=== PATIENT | male | born 1985 | race Caucasian/White ===

== ENCOUNTER 2016-09-23 18:32 | Emergency (ER) | payer OTHER ==
[2016-09-23 19:04] VITALS: BP 126/76
--- NOTE | 2016-09-23 20:47 | UC ---
Throat Pain/Nasal Robbie HPI - HPI Summary HPI Summary: Worsening sinus pain thick yellow drainage, fatigued - History of Current Complaint Chief Complaint: UCRespiratory Stated Complaint: SINUS CONGESTION Time Seen by Provider: 09/23/16 20:34 Hx Obtained From: Patient Onset/Duration: Gradual Onset, Lasting Days, Worse Since - past 3-4 days Severity: Moderate Pain Intensity: 6 Pain Scale Used: 0-10 Numeric Cough: Sputum Appears - yellow/green Associated Signs & Symptoms: Positive: Sinus Discomfort, Nasal Discharge Related History: Smoking - Allergies/Home Medications Allergies/Adverse Reactions: Allergies Allergy/AdvReac Type Severity Reaction Status Date / Time Prednisone Allergy Swelling Verified 09/23/16 19:04 Of Face,Lips,& Throat PMH/Surg Hx/FS Hx/Imm Hx Previously Healthy: Yes Psychological History: Other Other Psychological History: in recovery from opiate addiction disorder - Surgical History Surgical History: None Surgery Procedure, Year, and Place: denies - Family History Known Family History: Positive: Other - grandfather of kidney stone - Social History Occupation: Employed Full-time Lives: With Family Alcohol Use: None Substance Use Comment - Amount & Last Used: suboxone Smoking Status (MU): Light Every Day Tobacco Smoker Type: Cigarettes Amount Used/How Often: 1/2 ppd Length of Time of Smoking/Using Tobacco: 8 yrs Have You Smoked in the Last Year: Yes Household Exposure Type: Cigarettes Cessation Counseling: Counseled 3+Min - 10 Min Review of Systems Constitutional: Fatigue Skin: Negative Eyes: Negative ENT: Ear Ache, Nasal Discharge Respiratory: Cough Cardiovascular: Negative Gastrointestinal: Negative Genitourinary: Negative Motor: Negative Neurovascular: Negative Musculoskeletal: Negative Neurological: Headache Psychological: Negative All Other Systems Reviewed And Are Negative: Yes Physical Exam Triage Information Reviewed: Yes Appearance: Well-Appearing, No Pain Distress, Well-Nourished Vital Signs: Initial Vital Signs Temp 97.6 F 09/23/16 19:04 Pulse 91 09/23/16 19:04 Resp 16 09/23/16 19:04 BP 126/76 09/23/16 19:04 Pulse Ox 99 09/23/16 19:04 Vital Signs Reviewed: Yes Eye Exam: Normal Eyes: Positive: Conjunctiva Clear ENT Exam: Normal ENT: Positive: Normal ENT inspection, Hearing grossly normal, Pharynx normal, Nasal congestion, Nasal drainage, TMs normal. Negative: Tonsillar swelling, Tonsillar exudate, Trismus, Muffled/hoarse voice Dental Exam: Normal Neck exam: Normal Neck: Positive: Supple, Nontender Respiratory Exam: Normal Respiratory: Positive: Chest non-tender, Lungs clear, Normal breath sounds, No respiratory distress, No accessory muscle use Cardiovascular Exam: Normal Cardiovascular: Positive: RRR, No Murmur, Pulses Normal, Brisk Capillary Refill Musculoskeletal Exam: Normal Musculoskeletal: Positive: Strength Intact, ROM Intact, No Edema Neurological Exam: Normal Neurological: Positive: Alert, Muscle Tone Normal Psychological Exam: Normal Skin Exam: Normal Throat Pain/Nasal Course/Dx - Course Assessment/Plan: Afrin, albuterol, augmentin, increase fluids, follow with pcp, nicotine cesastion information - Differential Dx/Diagnosis Differential Diagnosis/HQI/PQRI: Laryngitis, Otitis Media, Pharyngitis, Sinusitis, URI Provider Diagnoses: NIcotine dependent, Acute Sinusitis Discharge - Discharge Plan Condition: Stable Disposition: HOME Prescriptions: Amoxicillin/Clavulanate TAB* [Augmentin TAB 875*] 875 mg PO BID #19 tab Patient Education Materials: How to Stop Smoking (ED), Sinusitis (ED), How to Use a Metered-Dose Inhaler and a Spacer (ED), How to Use Nasal [place] (ED) Forms: *Work Release Referrals: Denny Stout MD [Primary Care Provider] - If Needed
[2016-09-23] MEDS ORDERED: Amoxicillin/Clavulanate TAB* 875 MG PO ONE (20:50)
[2016-09-23] MEDS ORDERED: Albuterol HFA INHALER* 8 gm MDI INH ONE (20:50)
[2016-09-23] MEDS ORDERED: Phenylephrine 0.25% NASAL* PUFF BOTH NARES ONE (20:52)
[2016-09-23] MEDS ORDERED: Phenylephrine 1% NASAL* 15 ML BOT BOTH NARES ONE (21:23)
== END 2016-09-23 21:34 | disposition home or self-care (01) ==
LOC: UCEAST 18:32
DX: J01.90 Acute sinusitis, unspecified (principal); R53.83 Other fatigue; Z88.8 Allergy status to other drugs, medicaments and biological substances; F17.210 Nicotine dependence, cigarettes, uncomplicated; Z71.6 Tobacco abuse counseling
CPT/HCPCS: 99213; A9270-GY; G0463

== ENCOUNTER 2017-03-02 23:15 | Emergency (ER) | payer OTHER ==
[2017-03-03] MEDS ORDERED: NS 0.9% 1000 ML*IV.FLUID IV ONE (00:12)
[2017-03-03] MEDS ORDERED: Ketorolac INJ* 30 MG/ML 1 ML VIAL IV ONE (00:12)
[2017-03-03] MEDS ORDERED: metroNIDAZOLE IV 500 MG/100ML* 500 MG/100 ML BAG IVPB ONE (00:15)
[2017-03-03] MEDS ORDERED: Cefepime(*) 2 GM in NS 0.9% 50 ML* 50 ML IVPB ONE (00:15)
--- NOTE | 2017-03-03 00:31 | ED ---
Upper Extremity Pain - HPI Summary HPI Summary: Pt presents w/ Lt arm pain with skin changes s/p injecting heroin 5 weeks ago here. Area has been red, swollen and painful - 11/26. He was started on a course of doxycycline and when he completed this 2 days ago, area got worse. He also reports subjective fever/chills. Denies numbness, tingling, weakness, N/V/D, chest pain, SOB, ab pain, headache, neck pain/stiffness. He is concerned about sepsis. H/o pericarditis with "smoking too much weed" in the past - no sx like that at this time. NOTE: pt reports he's on suboxone and has been for years. He relapsed due to stress 5 weeks ago which is why he used. - History of Current Complaint Chief Complaint: EDRashSkinAbscess Stated Complaint: ABCESS ON ARM Time Seen by Provider: 03/02/17 23:27 Hx Obtained From: Patient, Family/Automation Qtp Tester - female community health counselor - Allergies/Home Medications Allergies/Adverse Reactions: Allergies Allergy/AdvReac Type Severity Reaction Status Date / Time Prednisone Allergy Swelling Verified 09/23/16 19:04 Of Face,Lips,& Throat PMH/Surg Hx/FS Hx/Imm Hx Previously Healthy: Yes Endocrine/Hematology History: Denies: Hx Anticoagulant Therapy, Hx Blood Disorders Cardiovascular History: Reports: Other Cardiovascular Problems/Disorders - pericarditis GI History: Reports: Other GI Disorders - Hep C, controlled at this time Psychiatric History: Reports: Hx Substance Abuse - former ivda - Surgical History Surgery Procedure, Year, and Place: denies Infectious Disease History: No Infectious Disease History: Denies: Traveled Outside the [place] in Last 30 Days - Family History Known Family History: Positive: Other - grandfather of kidney stone - Social History Occupation: Unemployed Alcohol Use: None - none in past 2 years Hx Substance Use: Yes Substance Use Type: Reports: Heroin - last injected 5 weeks ago Substance Use Comment - Amount & Last Used: suboxone daily 16mg Hx Tobacco Use: Yes Smoking Status (MU): Current Every Day Smoker Type: Cigarettes Amount Used/How Often: 1/2 -1 ppd Length of Time of Smoking/Using Tobacco: 8 yrs Have You Smoked in the Last Year: Yes Review of Systems Positive: Fever, Chills ENT: Other - getting over a URI Cardiovascular: Negative Respiratory: Negative Gastrointestinal: Negative Positive: no symptoms reported Skin: Other - Lt arm redness Neurological: Negative Psychological: Normal - concerned but calm and cooperative All Other Systems Reviewed And Are Negative: Yes Physical Exam Triage Information Reviewed: Yes Vital Signs On Initial Exam: Initial Vitals Temp Pulse Resp BP Pulse Ox 96.6 F 103 20 135/89 97 03/02/17 23:16 03/02/17 23:16 03/02/17 23:16 03/02/17 23:16 03/02/17 23:16 Vital Signs Reviewed: Yes Appearance: Positive: Well-Nourished, Ill-Appearing - sweating - when asked if he's withdrawing he reports "no, I just sweat alot"; pleasant, somewhat anxious , generalized pallor, Pain Distress - mild to moderate Skin: Positive: Warm, Dry - skin about the Lt brachioradialis is with central darkscabbing/black skin (about a quarter in size) surrounded by purple skin then surrounded by dusky red skin - firmness - no bogginess or fluctuance; no fever to touch; TTP and pain in this area as well as into bicep and forearm with elbow flexion/extension (feels best slightly flexed) Head/Face: Positive: Normal Head/Face Inspection Eyes: Positive: EOMI ENT: Positive: Hearing grossly normal, Pharynx normal Respiratory/Lung Sounds: Positive: Clear to Auscultation, Breath Sounds Present. Negative: Rales, Rhonchi, Wheezes Cardiovascular: Positive: Normal, Tachycardia - 103BPM, S1, S2. 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 are intact - elbow is gaurded d/t tissue issue as described above, Limited @ - as above, Pain @ - as above Neurological: Positive: Normal, Sensory/Motor Intact, Alert, Oriented to Person Place, Time, CN Intact II-III Psychiatric: Positive: Anxious - but cooperative, pleasant and in good spirits - [place] Coma Scale Coma Scale Total: 15 Diagnostics - Vital Signs Vital Signs Temp Pulse Resp BP Pulse Ox 03/02/17 23:16 96.6 F 103 20 135/89 97 - Laboratory Result Diagrams: 03/03/17 01:05 03/03/17 01:05 Lab Statement: Any lab studies that have been ordered have been reviewed, and results considered in the medical decision making process. Course/Dx - Course Course Of Treatment: Pt here w/ Lt UE redness, swelling and pain over injection site from 5 weeks ago. He hsa already tried a course of doxycycline and area seemed worse upon completion. This morning, he initially reported subjective fevers/chills. Admits he used heroin earlier today but typically takes suboxone 12mg daily. Denies withdrawal sx at this time. Labs ordered and sepsis initiated as he had low grade tachycardia and did not feel well. His labs returned w/o findings for sepsis and so after flagyl was administered it was decided a CT w/ contrast to assess for occult abscess and necrosis was ordered. Unfortnuately the "vein blew" per cell technician and so he had his CT w/o contrast ( NOTE: low suspicion for abscess at this time). Also discussed with Dr. Nagy prior to proceeding with CT contrast that pt may refrain from further IV anbx and take PO as needed. His CT image was reviewed by myself and Dr. Nagy - no air observed on wet read. Pending final report. If no abscess or necrosis identified, will d/c w/ PO clindamycin and f/u w/ medical care provider for wound recheck. Signed out to Dr. Nagy. - Diagnoses Provider Diagnoses: Cellulitis of left arm Discharge - Discharge Plan Condition: Stable Disposition: OTHER Discharge Disposition Comment: Signed out to Dr. Nagy Prescriptions: Clindamycin HCl [Clindamycin 150 MG CAP*] 300 mg PO QID #40 cap Patient Education Materials: Cellulitis (ED) Referrals: Denny Stout MD [Primary Care Provider] - Additional Instructions: Apply warm epsom salt compress to wound to aid in healing. You may take NSAID's for relief of pain/swelling Complete antibiotics as directed Follow-up with PCP Wednesday for wound recheck - call tomorrow to schedule appointment. *If in the meantime you develop fever, chills, chest pain, shortness of breath, headache, neck stiffness, numbness, tingling or weakness, return to ED
[2017-03-03] MEDS ORDERED: Vancomycin(*) 1,250 MG IV x ONCE IVPB ONE ×2 (01:00)
[2017-03-03] MEDS ORDERED: CEFEPIME* 2 GM in Dextrose* 50 ml IV ONE (01:00)
[2017-03-03] MEDS ORDERED: Vancomycin(*) 1,000 MG VIAL IVPB SCH (01:00)
[2017-03-03 01:29] LABS: Hematocrit 40 % (42-52); Mean Corpuscular HGB Conc 33 g/dl (31-36); Mean Corpuscular Hemoglobin 28 pg (27-31); Mean Corpuscular Volume 86 fL (80-94); Mean Platelet Volume 10 um3 (7.4-10.4); Red Blood Count 4.61 10^6/ul (4.0-5.4); Red Cell Distribution Width 14 % (10.5-15); White Blood Count 4.6 10^3/ul (3.5-10.8)
[2017-03-03 01:40] LABS: ALT 198 U/L (7-52); Albumin 4.1 g/dL (3.2-5.2); Alkaline Phosphatase 79 U/L (34-104); BUN/Creatinine Ratio 14.6 (8-20); Blood Urea Nitrogen 14 mg/dL (6-24); C Reactive Protein 8.69 mg/L (< 5.00); CO2 Carbon Dioxide 27 mmol/L (22-32); Calcium 9.4 mg/dL (8.6-10.3); Chloride 101 mmol/L (101-111); Creatine Kinase 150 U/L (10-223); EGFR African American 116.7 (>60); EGFR Non-African American 90.8 (>60); Globulin 3.4 g/dL (2-4); Glucose 110 mg/dL (70-100); Sodium 133 mmol/L (133-145); Total Protein 7.5 g/dL (6.4-8.9)
[2017-03-03] MEDS ORDERED: Iohexol 300* (CONTRAST) 10 ML SDV IV ONE (01:52)
[2017-03-03 01:56] LABS: Anion Gap 5 mmol/L (2-11)
[2017-03-03 03:31] VITALS: BP 138/83
--- NOTE | 2017-03-03 07:52 | RAD ---
HISTORY: Injection alignment, abscess, necrosis COMPARISONS: None relevant TECHNIQUE: Multiple contiguous axial CT images are obtained of the left elbow, with coronal and sagittal multiplanar reconstructions, without intravenous contrast administration. FINDINGS: Evaluation is limited by lack of contrast. This limits sensitivity for abscess. BONE DENSITY: Normal. BONES: There is no displaced fracture. There is no appreciable erosion or periosteal reaction. JOINTS: There is no arthropathy. There is no joint effusion. MUSCULATURE: There is mild edema of the elbow extensor musculature along the proximal radius and ulna. ALIGNMENT: There is no dislocation. SOFT TISSUES: There is stranding of the subcutaneous fat along the posterior distal humerus and posterior proximal radius. There is no appreciable loculated fluid collection. OTHER FINDINGS: None. IMPRESSION: 1. INFLAMMATORY CHANGE ALONG THE POSTERIOR ELBOW CONSISTENT WITH CELLULITIS. THERE IS NO LOCULATED FLUID COLLECTION TO SUGGEST ABSCESS. THERE IS NO APPRECIABLE EROSION OR PERIOSTEAL REACTION. 2. EVALUATION IS LIMITED BY THE LACK OF INTRAVENOUS CONTRAST. ADDITIONALLY, THERE IS PERSISTENT CLINICAL CONCERN FOR OSTEOMYELITIS, MRI OR BONE SCAN MAY BE MORE SENSITIVE.
== END 2017-03-03 03:30 | disposition home or self-care (01) ==
LOC: ED 23:15
DX: L03.114 Cellulitis of left upper limb (principal); R50.9 Fever, unspecified; Z88.8 Allergy status to other drugs, medicaments and biological substances; I31.9 Disease of pericardium, unspecified; F11.10 Opioid abuse, uncomplicated; F17.210 Nicotine dependence, cigarettes, uncomplicated
CPT/HCPCS: 36415; 80053; 82550; 83605; 84484; 85025; 85610; 85730; 86140; 87040; 93005; 96365; 96375; 99284; J0692; J1885; J3370

== ENCOUNTER 2017-03-08 09:38 | Emergency (ER) | payer OTHER ==
[2017-03-08] MEDS ORDERED: Amoxicillin/Clavulanate TAB* 875 MG PO ONE (11:16)
[2017-03-08 11:28] VITALS: BP 135/84
--- NOTE | 2017-03-15 13:06 | ED ---
Skin Complaint - HPI Summary HPI Summary: Pt here w/ Lt arm abscess x ... He was seen here by myself a few days ago. He had been taking doxycycline prior to last visit. Was switched to clindamycin however reports today he was not sure which pharmacy it was sent to so he hasn' t been taking it. Continued to take left over doxycycline he had at his house. Wound appears better today however pt is concerned and wanted recheck. He also has URI sx that are not improving. He's concerned about this URI healing as he' s not been sleeping with obligations he has throughout the day - needs more sleep. - History of Current Complaint Chief Complaint: EDRashSkinAbscess Time Seen by Provider: 03/08/17 09:45 Stated Complaint: ARM ABCESS Hx Obtained From: Patient Pain Intensity: 7 - Allergy/Home Medications Allergies/Adverse Reactions: Allergies Allergy/AdvReac Type Severity Reaction Status Date / Time Prednisone Allergy Swelling Verified 03/08/17 10:21 Of Face,Lips,& Throat PMH/Surg Hx/FS Hx/Imm Hx Previously Healthy: Yes Endocrine/Hematology History: Denies: Hx Anticoagulant Therapy, Hx Blood Disorders, Hx Diabetes Cardiovascular History: Reports: Other Cardiovascular Problems/Disorders - pericarditis GI History: Reports: Other GI Disorders - Hep C, controlled at this time History: Denies: Hx Renal Disease Psychiatric History: Reports: Hx Substance Abuse - IVDA, intermittent - in process of cessation however admits to relapses - Surgical History Surgery Procedure, Year, and Place: denies - Immunization History Immunizations Up to Date: Yes Infectious Disease History: No Infectious Disease History: Denies: Traveled Outside the [place] in Last 30 Days - Family History Known Family History: Positive: Other - grandfather of kidney stone - Social History 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 Negative: Fever, Chills Eyes: Negative Negative: Photophobia, Blurred Vision, Diplopia, Drainage, Erythema Positive: Sore Throat, Ear Ache, Nasal Discharge Cardiovascular: Negative Negative: Palpitations, Chest Pain Positive: Cough. Negative: Shortness Of Breath Gastrointestinal: Negative Negative: Abdominal Pain, Vomiting, Diarrhea, Nausea Positive: no symptoms reported Musculoskeletal: Negative Negative: Decreased ROM Skin: Other - wound Lt arm Positive: Headache - from sinus pain/pressure - no neck pain/stiffness. Negative: Weakness, Numbness, Syncope Positive: Anxious All Other Systems Reviewed And Are Negative: Yes Physical Exam Triage Information Reviewed: Yes Vital Signs On Initial Exam: Initial Vitals Temp Pulse Resp BP Pulse Ox 97.0 F 88 15 149/91 99 03/08/17 09:39 03/08/17 09:39 03/08/17 09:39 03/08/17 09:39 03/08/17 09:39 Vital Signs Reviewed: Yes Appearance: Positive: No Pain Distress - anxious, Well-Nourished, Ill-Appearing - appears mildly fatigued and sick w/ URI Skin: Positive: Warm, Dry - area over Lt brachioradialis region is smaller re: erythema - scab is still intact and no induration, fever, bogginess, streaking or drainage - appears to be healing well Head/Face: Positive: Normal Head/Face Inspection Eyes: Positive: Normal, EOMI, BRIANNA, Conjunctiva Clear. Negative: Conjunctiva Inflammed, Discharge ENT: Positive: Hearing grossly normal, Pharyngeal erythema - cobblestoning, Nasal congestion, TMs normal, Sinus tenderness, Uvula midline. Negative: Nasal drainage, Trismus, Muffled voice, Hoarse voice Neck: Positive: Supple, Nontender, No Lymphadenopathy Respiratory/Lung Sounds: Positive: Clear to Auscultation, Breath Sounds Present. Negative: Rales, Rhonchi, Wheezes Cardiovascular: Positive: Normal, RRR, Pulses are Symmetrical in both Upper and Lower Extremities, S1, S2. Negative: Murmur, Rub Abdomen Description: Positive: Nontender, No Organomegaly, Soft Bowel Sounds: Positive: Present Musculoskeletal: Positive: Normal, Strength/ROM Intact Neurological: Positive: Normal, Sensory/Motor Intact, Alert, Oriented to Person Place, Time, CN Intact II-III Psychiatric: Positive: Anxious - [place] Coma Scale Coma Scale Total: 15 Diagnostics - Vital Signs Vital Signs Temp Pulse Resp BP Pulse Ox 03/08/17 11:27 97.6 F 85 16 135/84 99 03/08/17 09:39 97.0 F 88 15 149/91 99 - Laboratory Lab Statement: Any lab studies that have been ordered have been reviewed, and results considered in the medical decision making process. Course/Dx - Course Course Of Treatment: Although pt's wound appears to be healing well, his URI is progressing despite doxycycline. He has been taking this for over a week now w/ sinus sx - will have him complete doxy for wound on Lt arm as this is healing well but start him on augmentin for URI/sinus infection sx. He is under alot of stress and not sleeping well which may prolong healing. Will also take him out of work/activity for 2 days to allow for rest/healing. If sx persist or worsen, f/u w/ PCP. Pt agrees w/ plan. - Diagnoses Provider Diagnoses: URI (upper respiratory infection), Sinusitis Discharge - Discharge Plan Condition: Stable Disposition: HOME Prescriptions: Amoxicillin/Clavulanate TAB* [Augmentin TAB 875*] 875 mg PO BID #20 tab Patient Education Materials: Sinusitis (ED), Upper Respiratory Infection (ED) Forms: *Work Release Referrals: Denny Stout MD [Primary Care Provider] - Additional Instructions: Rest, hydrate, and complete medication as directed (Augmentin - new today to treat sinus infection). Nasal wash (netti pot) & throat gargle 2 x day with 8 ounces of warm water + 1/ 4 teaspoon of salt Drink 60+ ounces of water daily Sleep 8+ hours per night Avoid Dairy and sugar Hot herbal/decaf tea with lemon & honey Chicken broth (preferably organic, free range chicken) Humidifier in house, but especially near bed at night Try a facial steam with or without eucalyptus essential oil You may also try Afrin nasal spray and ibuprofen with food for congestion, swelling and pain of sinuses. Consider taking Vitamin D3 5,000iu and Vitamin C 1,000mg every day during illness Start probiotics in between and after completion of antibiotics (ie. Yogurt and/ or capsules of L. acidophilus, L. bifidus, L. casei, etc - make sure to get these from the refrigerated food section as they are live and active cultures) Complete the doxycyline you have been taking at home for your wound infection - appears to be healing well. *If symptoms persist or worsen, follow-up with your PCP.
== END 2017-03-08 11:26 | disposition home or self-care (01) ==
LOC: ED 09:38
DX: J06.9 Acute upper respiratory infection, unspecified (principal); J32.9 Chronic sinusitis, unspecified; L02.414 Cutaneous abscess of left upper limb; Z88.8 Allergy status to other drugs, medicaments and biological substances; I31.9 Disease of pericardium, unspecified; B19.20 Unspecified viral hepatitis C without hepatic coma; F11.90 Opioid use, unspecified, uncomplicated; F17.210 Nicotine dependence, cigarettes, uncomplicated
CPT/HCPCS: 99282; A9270-GY

== ENCOUNTER 2017-03-18 20:24 | Emergency (ER) | payer OTHER ==
[2017-03-18 20:31] VITALS: BP 147/85
[2017-03-18] MEDS ORDERED: Ketorolac INJ* 60 MG/2 ML VIAL IM ONE (21:23)
[2017-03-18] MEDS ORDERED: Lidocaine/Epineph/Tetraca SOL* (LET solution) 4 ML BTL TOPICAL ONE (21:23)
--- NOTE | 2017-03-18 21:31 | UC ---
Skin Complaint HPI - HPI Summary HPI Summary: Wound on Left Elbow painful---oozing off Suboxone for 4 days also scrapped over a metal vent last night---wound is mostly soft eshar tissue - History of Current Complaint Hx Obtained From: Patient Onset/Duration: Gradual Onset, Lasting Weeks, Worse Since - last nigh Timing: Constant Onset Severity: Moderate Current Severity: Moderate Pain Intensity: 8 Pain Scale Used: 0-10 Numeric Location: Discrete Character: Pain, Redness Aggravating Factor(s): Touch Alleviating Factor(s): Nothing <Bailey Montano - Last Filed: 03/19/17 21:21> <Momo Nagy - Last Filed: 03/22/17 15:19> - History of Current Complaint Chief Complaint: UCSkin Time Seen by Provider: 03/18/17 20:57 Stated Complaint: WOUND ON ARM - Allergy/Home Medications Allergies/Adverse Reactions: Allergies Allergy/AdvReac Type Severity Reaction Status Date / Time Prednisone Allergy Swelling Verified 03/18/17 20:32 Of Face,Lips,& Throat Review of Systems Constitutional: Negative Skin: Other - painful poorly healing wound left forearm Eyes: Negative ENT: Negative Respiratory: Negative Cardiovascular: Negative Gastrointestinal: Negative Genitourinary: Negative Motor: Negative Neurovascular: Negative Musculoskeletal: Negative Neurological: Negative Psychological: Negative Is Patient Immunocompromised?: No All Other Systems Reviewed And Are Negative: Yes <Bailey Montano - Last Filed: 03/19/17 21:21> PMH/Surg Hx/FS Hx/Imm Hx Previously Healthy: No Other History Of: Hepatitis C Negative For: Anticoagulant Therapy - Surgical History Surgical History: None Surgery Procedure, Year, and Place: denies - Family History Known Family History: Positive: Other - grandfather of kidney stone - Social History 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 Lives: With Family Alcohol Use: None Substance Use Type: Heroin Substance Use Comment - Amount & Last Used: last 03/13/17 Smoking Status (MU): Light Every Day Tobacco Smoker Type: Cigarettes Amount Used/How Often: 1/2 -1 ppd Length of Time of Smoking/Using Tobacco: 8 yrs Have You Smoked in the Last Year: Yes Household Exposure Type: Cigarettes <Bailey Montano - Last Filed: 03/19/17 21:21> Physical Exam Triage Information Reviewed: Yes Appearance: Well-Appearing, Well-Nourished, Pain Distress Vital Signs: Initial Vital Signs Temp 97.5 F 03/18/17 20:27 Pulse 95 03/18/17 20:27 Resp 18 03/18/17 20:27 BP 147/85 03/18/17 20:27 Pulse Ox 98 03/18/17 20:27 Vital Signs Reviewed: Yes Eye Exam: Normal Eyes: Positive: Conjunctiva Clear ENT Exam: Normal ENT: Positive: Normal ENT inspection, Hearing grossly normal, Pharynx normal. Negative: Trismus, Muffled voice, Hoarse voice Dental Exam: Normal Neck exam: Normal Neck: Positive: Supple, Nontender Respiratory Exam: Normal Respiratory: Positive: Chest non-tender, No respiratory distress, No accessory muscle use Cardiovascular Exam: Normal Cardiovascular: Positive: RRR, Pulses Normal, Brisk Capillary Refill Musculoskeletal Exam: Normal Musculoskeletal: Positive: Strength Intact, ROM Intact, No Edema Neurological Exam: Normal Neurological: Positive: Alert, Muscle Tone Normal Psychological Exam: Normal Skin Exam: Normal Skin: Positive: Other - 3x2 cm black eschar with 1/2 cm border of erythma <Bailey Montano - Last Filed: 03/19/17 21:21> Vital Signs: Initial Vital Signs Temp 97.5 F 03/18/17 20:27 Pulse 95 03/18/17 20:27 Resp 18 03/18/17 20:27 BP 147/85 03/18/17 20:27 Pulse Ox 98 03/18/17 20:27 <Momo Nagy - Last Filed: 03/22/17 15:19> Re-Evaluation - Re-Evaluation First Eval Change: Improved - eschar removed from wound no purulent drainage, wound bed pink and moist, no active bleeding wound washed with saline, Mepilex dresssing applied <Bailey Montano - Last Filed: 03/19/17 21:21> Course/Dx - Course Course Of Treatment: continue antibiodic, change Mepilex q 3-4 days and prn saturated dressing follow with pcp this week as planned - Diagnoses Provider Diagnoses: wound debridement left forearm <Bailey Montano - Last Filed: 03/19/17 21:21> Discharge <Bailey Montano - Last Filed: 03/19/17 21:21> <Momo Nagy Last Filed: 03/22/17 15:19> - Discharge Plan Condition: Stable Disposition: HOME Prescriptions: Fluconazole [Diflucan 150 MG (NF)] 150 mg PO ONCE #1 tab Hydrocodone-Acetaminophen [Hydrocodone/Acetaminophen 5-325 mg] 1 tab PO QID #12 tab MDD 4 Patient Education Materials: Debridement (ED) Forms: *Work Release Referrals: Denny Stout MD [Primary Care Provider] - As Soon As Possible Additional Instructions: Follow with Dr. Stout as planned. Change Mepilex dressing every three days or is it becomes saturated with drainage wash with mild soap and water when you change the dressing and dry well Good [place] and One Day at a time You Got this !! Never! Never ! Never ! Give up!
[2017-03-18] MEDS ORDERED: Lidocaine 4% TOPICAL* 50 ML TOP.SOLN TOPICAL ONE (22:04)
[2017-03-18] MEDS ORDERED: HYDROcodone/ACETAMIN 5-325 MG* 1 TAB PO ONE (22:04)
--- NOTE | 2017-03-22 15:18 | ED ---
Re-Evaluation - Re-Evaluation First Eval Change: Improved - eschar removed from wound no purulent drainage, wound bed pink and moist, no active bleeding wound washed with saline, Mepilex dresssing applied Course/Dx - Course Course Of Treatment: WOUND CX OF 03/18/17 SHOWED POSITIVE SULEIMAN. RX DIFLUCAN 150MG PO ONCE. - Diagnoses Provider Diagnoses: [place] infection
== END 2017-03-18 22:25 | disposition home or self-care (01) ==
LOC: UCEAST 20:24
DX: S41.102A Unspecified open wound of left upper arm, initial encounter (principal); B37.2 Candidiasis of skin and nail; X58.XXXA Exposure to other specified factors, initial encounter; Y93.9 Activity, unspecified; Y92.9 Unspecified place or not applicable; Y99.9 Unspecified external cause status; F17.210 Nicotine dependence, cigarettes, uncomplicated
CPT/HCPCS: 11000; 87070; 87106; 87205; 96372; 99212; G0463; J1885

== ENCOUNTER 2017-09-29 10:39 | Emergency (ER) | payer OTHER ==
[2017-09-29 13:01] VITALS: BP 133/94
--- NOTE | 2017-09-29 13:47 | UC ---
Skin Complaint HPI - HPI Summary HPI Summary: PT HAD A TICK BITE ABDOMEN ABOUT 2 WEEKS AGO. PRESENTS WITH SEVERAL DAYS OF FEVER TMAX 102, JOINT PAIN, MUSCLE PAIN AND CHILLS. FEELS FATIGUED. HAS A PAINFUL RED RASH RIGHT ANKLE. STATES HIS ARMS ARE "PURPLE" IN COLOR AND FEEL SWOLLEN. - History of Current Complaint Chief Complaint: UCGeneralIllness Time Seen by Provider: 09/29/17 13:15 Stated Complaint: TICK BITE FEVER CHILLS Hx Obtained From: Patient Onset/Duration: Sudden Onset, Lasting Days, Still Present Timing: Constant Onset Severity: Moderate Current Severity: Moderate Pain Intensity: 9 Pain Scale Used: 0-10 Numeric Character: Pain, Redness Aggravating Factor(s): Touch Alleviating Factor(s): Nothing Associated Signs & Symptoms: Positive: Fever, Rash, Tenderness. Negative: Nausea - Allergy/Home Medications Allergies/Adverse Reactions: Allergies Allergy/AdvReac Type Severity Reaction Status Date / Time amoxicillin Allergy vomit Verified 09/29/17 10:58 prednisone Allergy Swelling Verified 09/29/17 10:57 Home Medications: Home Medications Buprenorphine TAB* [Subutex TAB*] 09/29/17 [History] DOXYcycline CAP(*) [DOXYcycline 100MG CAP(*)] 100 mg PO 09/29/17 [History] Gabapentin 09/29/17 [History] Review of Systems Constitutional: Fever, Chills, Fatigue Skin: Rash Respiratory: Negative Cardiovascular: Negative Gastrointestinal: Negative Musculoskeletal: Arthralgia, Myalgia Neurological: Headache All Other Systems Reviewed And Are Negative: Yes PMH/Surg Hx/FS Hx/Imm Hx - Additional Past Medical History Additional PMH: H/O IV DRUG USE. CLEAN SINCE ~01/2017 Other History Of: Hepatitis C Negative For: Anticoagulant Therapy - Surgical History Surgical History: None Surgery Procedure, Year, and Place: denies - Family History Known Family History: Positive: Hypertension, Other - grandfather of kidney stone - Social History Alcohol Use: None Substance Use Type: Heroin Substance Use Comment - Amount & Last Used: last 03/13/17 Smoking Status (MU): Light Every Day Tobacco Smoker Type: Cigarettes Amount Used/How Often: 1/2 -1 ppd Length of Time of Smoking/Using Tobacco: 8 yrs Have You Smoked in the Last Year: Yes Household Exposure Type: Cigarettes Physical Exam Triage Information Reviewed: Yes Appearance: Well-Appearing, No Pain Distress, Well-Nourished Vital Signs: Initial Vital Signs Temp 98 F 09/29/17 10:54 Pulse 103 09/29/17 10:54 Resp 20 09/29/17 10:54 BP 151/92 09/29/17 10:54 Pulse Ox 99 09/29/17 10:54 Vital Signs Reviewed: Yes Eyes: Positive: Conjunctiva Clear ENT: Positive: Hearing grossly normal Neck: Positive: Supple, Nontender, No Lymphadenopathy Respiratory Exam: Normal Cardiovascular Exam: Normal Cardiovascular: Positive: Tachycardia Abdomen Description: Positive: Nontender, Soft Musculoskeletal: Positive: ROM Intact, No Edema Neurological: Positive: Alert Psychological: Positive: Age Appropriate Behavior Skin: Positive: Other - NON BLANCHING PUPURA RIGHT MEDIAL ANKLE - TTP. BILATERAL FOREARMS ARE DUSKY. SCABBED OVER TICK BITE SITE RIGHT ABD Course/Dx - Course Course Of Treatment: TO [facility] BY PRIVATE CAR - Diagnoses Provider Diagnoses: PURPURA Discharge - Sign-Out/Discharge Documenting (check all that apply): Discharge/Admit/Transfer - Discharge Plan Condition: Stable Disposition: HOME Patient Education Materials: [place] (ED) Referrals: Denny Stout MD [Primary Care Provider] - 2 Days Additional Instructions: GO DIRECTLY TO THE [facility] ED FROM HERE FOR FURTHER EVALUATION - Billing Disposition and Condition Condition: STABLE Disposition: Home
== END 2017-09-29 13:35 | disposition home or self-care (01) ==
LOC: UCEAST 10:39
DX: D69.2 Other nonthrombocytopenic purpura (principal); Z88.3 Allergy status to other anti-infective agents; F17.210 Nicotine dependence, cigarettes, uncomplicated
CPT/HCPCS: 99212; G0463

== ENCOUNTER 2018-08-07 19:43 | Inpatient (IN) | payer OTHER ==
[2018-08-07] MEDS ORDERED: cefTRIAXone(*) 1 GM in NS 0.9% 50 ML* 50 ML IVPB ONE (22:00)
[2018-08-07] MEDS ORDERED: NS 0.9% 1000 ML** 1,000 ML IV.FLUID IV ONE (22:00)
[2018-08-07] MEDS ORDERED: Albuterol/Ipratropium NEB.SOL* Albuterol 2.5 MG/Ipratropium 0.5 MG 3 ML INH ONE (22:00)
[2018-08-07] MEDS ORDERED: Azithromycin 500 mg/250 ml NS 500 MG/250 ML BAG IVPB ONE (22:00)
--- NOTE | 2018-08-07 22:04 | ED ---
Respiratory - HPI Summary HPI Summary: Patient is a 32-year-old male who presents emergency Department with a five-day history of fever, SOB and cough. Past history of IV drug use but patient states he has not used in 3 years. Patient notes a history of asthma and has used an inhaler in the past. Patient denies chest pain, abdominal pain, vomiting and diarrhea, rash. Past medical history of hepatitis C, no current treatment. Symptoms are moderate in severity. No current modifying factors. - History of Current Complaint Chief Complaint: EDFever Stated Complaint: "GENERAL ILLNESS PER EMS" Time Seen by Provider: 08/07/18 21:35 Hx Obtained From: Patient Pain Intensity: 2 - Allergy/Home Medications Allergies/Adverse Reactions: Allergies Allergy/AdvReac Type Severity Reaction Status Date / Time amoxicillin Allergy vomit Verified 09/29/17 10:58 prednisone Allergy Swelling Verified 09/29/17 10:57 PMH/Surg Hx/FS Hx/Imm Hx Previously Healthy: Yes Endocrine/Hematology History: Denies: Hx Anticoagulant Therapy, Hx Blood Disorders, Hx Diabetes Cardiovascular History: Reports: Other Cardiovascular Problems/Disorders - pericarditis GI History: Reports: Other GI Disorders - Hep C, controlled at this time History: Denies: Hx Renal Disease Psychiatric History: Reports: Hx Substance Abuse - IVDA, intermittent - in process of cessation however admits to relapses - Surgical History Surgery Procedure, Year, and Place: denies Infectious Disease History: Yes Infectious Disease History: Reports: Hx Hepatitis - hep c/not treated Denies: Traveled Outside the [place] in Last 30 Days - Family History Known Family History: Positive: Hypertension, Other - grandfather of kidney stone - Social History Occupation: Unemployed Lives: Alone Alcohol Use: None Hx Substance Use: Yes Substance Use Type: Reports: Heroin Substance Use Comment - Amount & Last Used: last 03/13/17 Hx Tobacco Use: Yes Smoking Status (MU): Light Every Day Tobacco Smoker Type: Cigarettes Amount Used/How Often: 1/2 -1 ppd Length of Time of Smoking/Using Tobacco: 8 yrs Have You Smoked in the Last Year: Yes Review of Systems Positive: Fever, Chills Eyes: Negative ENT: Negative Cardiovascular: Negative Negative: Chest Pain Positive: Shortness Of Breath, Cough Gastrointestinal: Negative Negative: Abdominal Pain, Diarrhea Musculoskeletal: Negative Skin: Negative Neurological: Negative All Other Systems Reviewed And Are Negative: Yes Physical Exam Triage Information Reviewed: Yes Vital Signs On Initial Exam: Initial Vitals Temp Pulse Resp BP Pulse Ox 98.9 F 126 15 133/59 92 08/07/18 19:47 08/07/18 19:47 08/07/18 19:47 08/07/18 19:47 08/07/18 19:47 Vital Signs Reviewed: Yes Appearance: Positive: Ill-Appearing - Pt. sitting up in bed, appears unwell. Skin: Positive: Warm, Dry Head/Face: Positive: Normal Head/Face Inspection Eyes: Positive: Normal, EOMI, BRIANNA Neck: Positive: Supple. Negative: Nuchal Rigidity Respiratory/Lung Sounds: Positive: Other - Diminished breath sounds throughout with expiratory wheeze. No accessory muscle use. No stidor.. Negative: Unable to speak in full sentences Neurological: Positive: Normal, CN Intact II-III Psychiatric: Positive: Affect/Mood Appropriate Diagnostics - Vital Signs Vital Signs Temp Pulse Resp BP Pulse Ox 08/07/18 19:47 98.9 F 126 15 133/59 92 - Laboratory Result Diagrams: 08/07/18 23:20 08/07/18 23:20 Lab Statement: Any lab studies that have been ordered have been reviewed, and results considered in the medical decision making process. Disposition - Course Course Of Treatment: Patient presenting with cough, fever and shortness of breath. Patient is ill-appearing on exam and oxygen saturation on room air is in the mid 80s. Patient was placed on nasal cannula. Respiratory paged. O2 mid 90's on 4L. Chest x-ray was obtained in triage and shows bilateral likely diffuse infiltrates, reviewed by myself and Dr. Crawford. Patient tachycardic. Afebrile. Sepsis protocol ordered and antibx. Will obtain CT scan of chest with contrast for further evaluation. 2240: Nurses unable to obtain IV access after numerous attempts and ultrasound guided. Dr. Peck in to exam pt. and will place a central line. Labs show anemia and low platelet count. Troponin .11. Na 131, Cl 95, Ca 8, bilirubin 1.3, AST 88, CRP 111. ECG done at 1 shows a sinus tachycardia at 122 bpm, normal axis, no ST elevation or depression. Pending HIV ab. Case discussed with Dr. Appiah, hospitalist, who accepts pt. for admission. Pending chest CT at this time. - Differential Dx - Cardiopulmonary Differential Diagnoses - Cardiopulmonary: Asthma, Hypoxia, Lower Resp Infection , Myocardial Infarction, Myocarditis, Pericarditis - Diagnoses Provider Diagnoses: Pneumonia, Hypoxic - Critical Care Time Critical Care Time: 30-74 min - 30 minutes including direct pt. care and consultation. Excludes billable procedures. Discharge - Sign-Out/Discharge Documenting (check all that apply): Patient Departure Patient Received Moderate/Deep Sedation with Procedure: No - Discharge Plan Condition: Stable Disposition: ADMITTED TO [facility] - Billing Disposition and Condition Condition: STABLE Disposition: Admitted to [facility]
[2018-08-07] MEDS ORDERED: Lidocaine 2% EPI 1:200000 MPF* 10 ML VIAL INJ ONE (22:39)
[2018-08-07 22:42] LABS: Influenza A Molecular NEGATIVE (Negative); Influenza B Molecular NEGATIVE (Negative)
[2018-08-07] MEDS ORDERED: Lidocaine 2% EPI 1:200000 MPF*10-20 ML VIAL ONE (22:46)
--- NOTE | 2018-08-07 23:13 | ED ---
Progress - Progress Note Progress Note: Performing central line procedure on patient at request of SUMAYA Slade. A 32 y/o M presents to ED with c/o fever, SOB, cough onset 5 days ago. Past history of IV drug. A central line was placed at L subclavian under US guidance via standard Seldinger technique. Used 2% lido with epi. - Results/Orders Results/Orders: CXR post-central line as read by ED provider: Confirms good placement. Course/Dx - Course Course Of Treatment: Performing central line procedure on patient at request of SUMAYA Slade. Pt is a 32 y/o M with IV drug use hx presenting with fever, SOB, cough onset 5 days ago. Central line placed at L subclavian under US guidance via standard Seldinger technique. Used 2% lido with epi. CXR post-proc confirms good placement. - Diagnoses Provider Diagnoses: Pneumonia, Hypoxic Discharge - Sign-Out/Discharge Documenting (check all that apply): Patient Departure - Discharge Plan Condition: Stable Disposition: ADMITTED TO [facility] - Billing Disposition and Condition Condition: STABLE Disposition: Admitted to [facility] - Attestation Statements Document Initiated by Scribe: Yes Documenting Scribe: Valentina Alberts Provider For Whom Scribe is Documenting (Include Credential): Dr. Reggie Peck MD Scribe Attestation: Valentina Vasquez scribed for Dr. Reggie Peck MD on 08/08/18 at 0244. Scribe Documentation Reviewed: Yes Provider Attestation: The documentation as recorded by the Valentina keene accurately reflects the service I personally performed and the decisions made by , Dr. Reggie Peck MD Status of Scribe Document: Viewed
[2018-08-07 23:49] LABS: ABS Basophils 0 10^3/ul (0-0.2); ABS Eosinophils 0 10^3/ul (0-0.6); ABS Lymphocytes 0.8 10^3/ul (1.0-4.8); ABS Monocytes 0.4 10^3/ul (0-0.8); ABS Neutrophils 4.7 10^3/ul (1.5-7.7); ABS Nucleated RBC 0 10^3/ul; Eosinophil % 0.5 %; Hematocrit 26 % (36-46); Hemoglobin 8.4 g/dL (14.0-18.0); Lymphocyte % 13.1 %; Mean Corpuscular HGB Conc 33 g/dL (31-36); Mean Corpuscular Hemoglobin 25 pg (27-31); Mean Corpuscular Volume 78 fL (80-94); Mean Platelet Volume 11.2 fL (7.4-10.4); Nucleated Red Blood Cells % 0.1; Platelet Count 106 10^3/uL (150-450); Red Blood Count 3.33 10^6 /uL (4.18-5.48); Red Cell Distribution Width 18 % (10.5-15)
[2018-08-07 23:58] LABS: Activated Partial Thrombo Time 29.2 seconds (26.0-36.3); INR 1.29 (0.77-1.02)
[2018-08-08 00:01] LABS: ALT 44 U/L (7-52); AST 88 U/L (13-39); Albumin 2.6 g/dL (3.2-5.2); Albumin/Globulin Ratio 0.8 (1-3); Alkaline Phosphatase 40 U/L (34-104); Anion Gap 8 mmol/L (2-11); BUN/Creatinine Ratio 26.5 (8-20); Blood Urea Nitrogen 27 mg/dL (6-24); C Reactive Protein 111.65 mg/L (<8.01); CO2 Carbon Dioxide 28 mmol/L (22-32); Chloride 95 mmol/L (101-111); EGFR African American 101.8 (>60); EGFR Non-African American 84.1 (>60); Globulin 3.2 g/dL (2-4); Glucose 114 mg/dL (70-100); Potassium 3.9 mmol/L (3.5-5.0); Sodium 131 mmol/L (135-145); Total Protein 5.8 g/dL (6.4-8.9)
[2018-08-08 00:14] LABS: Troponin I 0.11 ng/mL (<0.04)
[2018-08-08] MEDS ORDERED: Iohexol 300* (CONTRAST) 10 ML SDV IV ONE (00:19)
[2018-08-08 00:47] LABS: Magnesium 1.9 mg/dL (1.9-2.7)
[2018-08-08] MEDS ORDERED: Acetaminophen TAB* 325 MG PO PRN (01:33)
[2018-08-08] MEDS ORDERED: cefTRIAXone(*) 1 GM in NS 0.9% 50 ML* 50 ML IVPB SCH ×3 (02:00→21:00)
[2018-08-08] MEDS ORDERED: Buprenorphine TAB* 8 MG PO ONE (02:02)
--- NOTE | 2018-08-08 02:47 | ADMNOTE ---
Subjective Date of Service: 08/08/18 Interval History: HISTORY AND PHYSICAL PCP: Divya sher [facility] CC: fever HPI: Patient is 32 year old man with history of asthma, HepC, IVDU 5 years ago, who came to ER today with 5-7 day history of progressive fever, cough, and dyspnea. Cough is productive yellow sputum, and dyspnea has been more prominent for 2 days. He did not see PCP or CCC. He denies chest pain, orthopnea. He is actively trying to quit tobacco. In the ER, Central line placed due to poor access, LT subclavian. When he comes off O2 in ER, his O2sat drops to 82-82, and he looks dusky. 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, smokes 1 /2 PPD, no alcohol, last IV drug use 5 years ago Past Medical History: Findings - HepC, chronic active, asthma, PSH: none Review of Systems - Measurements Intake and Output: Intake and Output Last 24 Hours 08/05/18 08/06/18 08/07/18 08/08/18 06:59 06:59 06:59 06:59 Intake Total 2700 Balance 2700 Weight 88.451 kg Intake: IV Fluids 2700 - Review of Systems Constitutional Symptoms: Positive: Fatigue, Fever Dermatology: Positive: Normal HEENT: Positive: Normal Eyes: Positive: Normal Thyroid: Positive: Normal Pulmonary: Positive: Sputum, Respiratory Distress, Shortness of Breath Cardiology: Positive: Shortness of Breath, Edema Negative: Chest Pain Gastroenterology: Positive: Normal Negative: Abdominal Pain, Vomiting Genital - Urinary: Positive: Normal Genitourinary - Male: Negative: Prostatism Endocrinology: Positive: Normal Hematologic/Lymphatic: Negative: Anemia Neurology: Positive: Normal Psychiatry: Positive: Normal, Other - withdrawal Allergic/Immunologic: Positive: Athsma Objective Active Medications: Home medications Acetaminophen (Tylenol Tab*) 650 mg PO Q4H PRN PRN Reason: FEVER/HEADACHE Buprenorphine HCl (Subutex Tab*) 8 mg SL TID LENIN Gabapentin (Neurontin Cap(*)) 800 mg PO 1930 [facility] Vital Signs - 8 hr 08/08/18 08/08/18 08/08/18 00:07 00:24 00:54 Temperature Pulse Rate 120 118 114 Respiratory 29 33 26 Rate Blood Pressure 131/39 135/47 (mmHg) O2 Sat by Pulse 94 94 95 Oximetry 08/08/18 08/08/18 08/08/18 01:00 01:24 02:00 Temperature Pulse Rate 114 114 123 Respiratory 34 40 Rate Blood Pressure 119/45 (mmHg) O2 Sat by Pulse 94 94 95 Oximetry Oxygen Devices in Use Now: Nasal Cannula Appearance: diaphoretic, mild resp distress, ambulatory Ears/Nose/Mouth/Throat: NL Teeth, Lips, Gums Neck: NL Appearance and Movements; NL JVP Respiratory: - - rales at bases bilat Cardiovascular: - - tachy, regular, 1+ edema bilat LE Lymphatic: No Cervical Adenopathy Extremities: No Clubbing, Cyanosis Skin: No Rash or Ulcers Neurological: Alert and Oriented x 3 Lines/Tubes/Other Access: Clean, Dry and Intact Central Line - L subclav Nutrition: Taking PO's Result Diagrams: 08/08/18 06:00 08/08/18 06:00 Additional Lab and Data: Laboratory Tests 08/07/18 08/07/18 08/07/18 23:20 23:20 23:20 INR (Anticoag Therapy) 1.29 H APTT 29.2 Glucose 114 H Lactic Acid 1.2 Total Bilirubin 1.30 H AST 88 H ALT 44 Troponin I 0.11 H* C-Reactive Protein 111.65 H Diagnostic Imaging: CXR: diffuse interstitial fluffy infiltrates, bilateral, looks like pneumocystis J pneumonia EKG Data: EKG: sinus tachycardia Assess/Plan/Problems-Billing Assessment: 32 year old man w/ history of IVDU, presenting with bilateral pneumonia - Patient Problems (1) Bilateral pneumonia Current Visit: Yes Status: Acute Priority: High Code(s): J18.9 - PNEUMONIA , UNSPECIFIED ORGANISM SNOMED Code(s): 885458582 Comment: -Differential would include community acquired pneumonia, atypical, pneumocystis, viral, septic emboli. -CT lungs pending, HIV test pending -Admitted for treatment of CAP, will alter treatment depending on results of blood, sputum cultures, HIV, etc. (2) Anemia Current Visit: Yes Status: Acute Priority: Medium Code(s): D64.9 - ANEMIA , UNSPECIFIED SNOMED Code(s): 304215976 Comment: -appears microcytic, may have acute blood loss, and/or iron deficiency. -Will recheck CBC in AM, and check iron studies. (3) Hepatitis C virus infection Current Visit: Yes Status: Acute Priority: Medium Comment: -Last viral load 05/2016 was positive, will recheck in AM (4) DVT prophylaxis Current Visit: Yes Status: Acute Priority: Medium Code(s): PVG3918 - SNOMED Code(s): 773600596 Comment: -low risk, will have early ambulation (5) Chronic use of opiate for therapeutic purpose Current Visit: Yes Status: Acute Priority: Medium Code(s): Z79.891 - S[facility]IVING (CURRENT) USE OF OPIATE ANALGESIC SNOMED Code(s): 841561007 Comment: -Patient on subutex for OUD -Will continue outpatient dose (6) Cigarette nicotine dependence Current Visit: Yes Status: Acute Priority: Medium Code(s): F17.210 - NICOTINE DEPENDENCE, CIGARETTES, UNCOMPLICATED SNOMED Code(s): 68196318 Comment: -Will support quitting w/ patch and gum, nicotine replacement Status and Disposition: inpatient
[2018-08-08] MEDS: NS 0.9% 1000 ML** 1,000 ML IV SCH ×2 (03:43→10:55)
[2018-08-08 04:37] LABS: Troponin I 0.13 ng/mL (<0.04)
[2018-08-08 06:18] LABS: ABS Basophils 0 10^3/ul (0-0.2); ABS Eosinophils 0 10^3/ul (0-0.6); ABS Lymphocytes 0.4 10^3/ul (1.0-4.8); ABS Monocytes 0.3 10^3/ul (0-0.8); ABS Neutrophils 3.6 10^3/ul (1.5-7.7); ABS Nucleated RBC 0 10^3/ul; Eosinophil % 0.3 %; Hematocrit 23 % (36-46); Hemoglobin 7.4 g/dL (14.0-18.0); Lymphocyte % 10.1 %; Mean Corpuscular HGB Conc 32 g/dL (31-36); Mean Corpuscular Hemoglobin 25 pg (27-31); Mean Corpuscular Volume 77 fL (80-94); Nucleated Red Blood Cells % 0; Red Blood Count 2.96 10^6 /uL (4.18-5.48); Red Cell Distribution Width 18 % (10.5-15); White Blood Count 4.3 10^3/uL (3.5-10.8)
[2018-08-08 06:36] LABS: Anion Gap 5 mmol/L (2-11); BUN/Creatinine Ratio 27.1 (8-20); Blood Urea Nitrogen 26 mg/dL (6-24); C Reactive Protein 103.96 mg/L (<8.01); CO2 Carbon Dioxide 28 mmol/L (22-32); Calcium 7.8 mg/dL (8.6-10.3); Chloride 98 mmol/L (101-111); EGFR African American 109.2 (>60); EGFR Non-African American 90.2 (>60); Glucose 124 mg/dL (70-100); Potassium 4.1 mmol/L (3.5-5.0); Sodium 131 mmol/L (135-145)
[2018-08-08 06:39] LABS: Mean Platelet Volume 10.8 fL (7.4-10.4); Platelet Count 86 10^3/uL (150-450)
[2018-08-08 06:56] LABS: Total Iron Binding Capacity 228 mcg/dL (250-450); Transferrin 163 mg/dL (203-362)
[2018-08-08 06:57] LABS: % Iron Saturation 7 % (15-55); Iron < 17 ug/dL (50-212)
[2018-08-08 07:10] LABS: Ferritin 213.3 ng/mL (24-336)
[2018-08-08] MEDS ORDERED: Nicotine GUM* 2 MG PO PRN (07:18)
[2018-08-08] MEDS ORDERED: LORazepam TAB(*) 0.5 MG PO ONE (07:48)
--- NOTE | 2018-08-08 07:54 | PN ---
Sepsis Event Evaluation Date of Evaluation: 08/08/18 Time of Evaluation: 07:48 Current Stage of Sepsis: Sepsis Vital Signs - Last 12 Hours: Vital Signs - 12 hr Temp Pulse Resp BP Pulse Ox 08/08/18 03:33 19 08/08/18 03:21 99.4 F 120 20 131/69 95 08/08/18 03:00 98.4 F 129 20 121/35 95 08/08/18 02:00 123 95 08/08/18 01:24 114 40 119/45 94 08/08/18 01:00 114 34 94 08/08/18 00:54 114 26 135/47 95 08/08/18 00:24 118 33 131/39 94 08/08/18 00:07 120 29 94 08/08/18 00:01 121 45 94 08/07/18 23:54 119 45 136/48 93 08/07/18 23:01 124 39 98 08/07/18 22:36 121 28 95 08/07/18 22:22 112 22 96 Most recent vital 0745 08/08/18 per nursing staff are as follows: 110 HR 118/37 BP 97% 4 L nc 32 RR 98 temp Lactic Acid: 08/07/18 08/08/18 23:20 03:40 Lactic Acid 1.2 1.1 - Cardiopulmonary Exam Capillary Refill: Immediate Respiratory: Symmetrical Chest Expansion and Respiratory Effort, - - Sporadic rhonchi throughout Cardiovascular: NL Sounds; No Murmurs; No JVD, No Edema, - - tachycardic - Peripheral Pulse Exam Radial Pulses: Bilateral Normal Pedal Pulses: Bilateral Normal - Skin Exam Skin Exam: Diaphoretic - Phillips Coma Scale Best Eye Response: 4 - Spontaneous Best Motor Response: 6 - Obeys Commands Best Verbal Response: 5 - Oriented Coma Scale Total: 15 Assess/Plan/Problems-Billing Assessment: 32 year old man w/ history of IVDU, presenting with bilateral pneumonia - Patient Problems (1) Sepsis Comment: - Lactic trending down - Cont abx and IV fluids - Cont to meet sepsis criteria given tachycardia, tachypnea, increase O2 requirements, and known source (2) Anxiety Comment: - Expressed anxiety - 0.5 mg Ativan PO ordered x1 now. - Cont to monitor Status and Disposition: inpatient
[2018-08-08] MEDS: Buprenorphine TAB* 8 MG SL SCH ×2 (07:57→20:45)
[2018-08-08] MEDS ORDERED: Nicotine PATCH 14 MG/24 HR* PATCH TRANSDERM SCH (09:00)
--- NOTE | 2018-08-08 10:40 | ECHO ---
Patient: KEMAR LYON [facility] Rec#: [id number] : 1985 Date: 08/08/2018 Age: 32y Height: 177.8 cm / 70.0 in Weight: 90.72 kg / 199.9 lbs Sex: M BSA: 2.06 Room#: 451 Admit Date#: 08/08/2018 Type: Inpatient Referring: Baron Appiah MD Reading: Marcello Ng MD Cabinet Assembler: Deisi [facility] Transthoracic Echocardiogram Indication: EDEMA BP: 131/61 HR: 100 Rhythm: NSR Findings History: FEVER, SOB, IV drug use, smoker Technical Comments: The study quality is fair. The study was incomplete due to the patient's refusal to continue the exam. Left Ventricle: The left ventricular chamber size is normal. Mild concentric left ventricular hypertrophy is observed. Global left ventricular wall motion and contractility are within normal limits. There is normal left ventricular systolic function. The estimated ejection fraction is 55-60%. The assessment of diastolic function is non-diagnostic. Left Atrium: The left atrium is mild to moderately dilated. Right Ventricle: The right ventricular chamber size and systolic function are within normal limits. Right Atrium: The right atrium is mild to moderately dilated. Aortic Valve: The aortic valve is trileaflet. The aortic valve leaflets are mildly thickened. There is severe aortic regurgitation. There is no evidence of aortic stenosis. A mass is visualized on the aortic valve which appears consistent with a vegetation. Mitral Valve: The mitral valve leaflets are mildly thickened. There is mild to moderate mitral regurgitation. There is no evidence of mitral stenosis. Tricuspid Valve: The tricuspid valve leaflets are normal. There is mild to moderate tricuspid regurgitation. There is evidence of moderate pulmonary hypertension. No vegetation is observed on the tricuspid valve. Pulmonic Valve: The pulmonic valve structure is not well visualized. There is mild pulmonic regurgitation. Pericardium: There is no significant pericardial effusion. Aorta: The aortic root appears normal. There is no dilatation of the aortic arch. Pulmonary Artery: The main pulmonary artery is not well visualized. Venous: The inferior vena cava appears normal in size. There is a greater than 50% respiratory change in the inferior vena cava dimension. Summary: There was not any prior study for comparison. Conclusions Mild concentric left ventricular hypertrophy is observed. Global left ventricular wall motion and contractility are within normal limits. There is normal left ventricular systolic function. The estimated ejection fraction is 55-60%. The right ventricular chamber size and systolic function are within normal limits. The aortic valve leaflets are mildly thickened. A mass is visualized on the aortic valve which appears consistent with a vegetation. size 1 cm There is severe aortic regurgitation. The mitral valve leaflets are mildly thickened. There is mild to moderate mitral regurgitation. There is mild to moderate tricuspid regurgitation. There is evidence of moderate pulmonary hypertension. There is no significant pericardial effusion. Results called to Dr Michaud Measurements Name Value Normal Range RVIDd (AP) 2D 2.7 cm (0.9 - 2.6) RAd ISD 4CH 5.8 cm (3.4 - 4.9) IVSd (2D) 1.3 cm (0.6 - 1) LVPWd (2D) 1.3 cm (0.6 - 1) LVIDd (2D) 5 cm (3.6 - 5.4) LVIDs (2D) 3.5 cm - LV FS (2D) 30 % (25 - 45) Aortic Annulus 2 cm (1.4 - 2.6) Ao root diameter (2D) 3 cm (2.1 - 3.5) Ascending Ao 3 cm (2.1 - 3.4) Aortic arch 2.3 cm (1.8 - 3.4) LA dimension (AP) 2D 4.3 cm (2.3 - 3.8) LAd ISD 4CH 4.7 cm (2.9 - 5.3) LA ISD 4CH W 4.5 cm (2.5 - 4.5) Name Value Normal Range LA ESV SP 4CH (A/L) 69.25 ml - LA ESV SP 2CH (A/L) 95.11 ml - LA ESV BP (A/L) 85.09 ml - LA ESV BP (A/L) index 41 ml/m2 - LA ESV SP 4CH (MOD) 64.48 ml - LA ESV SP 2CH (MOD) 88.99 ml - Name Value Normal Range MV E-wave Vmax 1 m/sec - MV deceleration time 126 msec - LV septal e' Vmax 0.09 m/sec - LV lateral e' Vmax 0.14 m/sec - LV E:e' septal ratio 11 ratio - LV E:e' lateral ratio 7 ratio - Name Value Normal Range AV Vmax 2.2 m/sec - AV VTI 38.1 cm - AV peak gradient 19 mmHg - AV mean gradient 9 mmHg - LVOT Vmax 1.6 m/sec - LVOT VTI 32 cm - LVOT peak gradient 10 mmHg - LVOT mean gradient 6 mmHg - AR PHT 79 msec - AR peak gradient 69.73 mmHg - Name Value Normal Range TR Vmax 3.5 m/sec - TR peak gradient 49 mmHg - RAP 3 mmHg - RVSP 52 mmHg - IVC diameter 1.4 cm - Name Value Normal Range PV Vmax 0.7 m/sec - PV peak gradient 2 mmHg -
[2018-08-08] MEDS ORDERED: Vancomycin(*) 1,500 MG in NS 0.9% 250 ML* 250 ML IVPB ONE (10:46)
[2018-08-08] MEDS ORDERED: Vancomycin per Pharmacy* NOTE FOLLOW UP SCH (11:00)
[2018-08-08] MEDS ORDERED: NS 0.9% 1000 ML** 1,000 ML IV SCH (12:45)
[2018-08-08 14:33] LABS: Troponin I 0.07 ng/mL (<0.04)
--- NOTE | 2018-08-08 14:53 | TRS ---
DATE OF ADMISSION: 08/08/2018. DATE OF TRANSFER: 08/08/2018. HISTORY OF PRESENT ILLNESS/HOSPITAL COURSE: This 32-year-old man presented with a five to seven day history of progressive fever, cough, and dyspnea. He described yellow sputum. He was more dyspneic for the past few days. There is no mention of a temperature being taken at home. He did not have a fever here. His highest temperature was 99.4; however, he did become hypothermic. His temperature fell to 94.9 and a Harika hugger was applied. The rest of the history is detailed in the admission note. Chest x-ray showed diffuse pulmonary infiltrates bilaterally. In retrospect, I think this may possibly be pulmonary edema and not pneumonia. His troponin level was 0.11 with a repeat of 0.13. Echocardiogram showed severe aortic insufficiency and a 1 cm vegetation on the aortic valve. Two blood cultures were drawn in the emergency room and are incubating at this time. There are no positive results yet. His white count was 6.0 with a repeat of 4.3, hemoglobin was 8.4 with a repeat of 7.4, platelets 106 with repeat of 86. Sodium 131, creatinine 0.96, BUN 26, potassium 4.1. The patient has been accepted in transfer by Dr. Dannie Shepherd at [facility], Cardiac Surgery Department. He will be going by helicopter. FINAL DIAGNOSES: 1. Bilateral pulmonary infiltrates. 2. Severe aortic insufficiency. 3. Aortic valve vegetation. 4. Anemia. 5. Thrombocytopenia. 6. History of IV drug abuse. 7. History of asthma. 8. Hyponatremia. CONDITION ON DISCHARGE: Guarded. DISPOSITION: Transfer to [facility] by helicopter. [id number]/[facility] #: [id number] [facility]ITAL[facility]gey
[2018-08-08] MEDS ORDERED: Gabapentin CAP(*) 400 MG PO SCH (19:30)
[2018-08-08] MEDS ORDERED: Vancomycin(*) 1,250 MG in NS 0.9% 250 ML* 250 ML IVPB SCH (20:00)
[2018-08-08] MEDS ORDERED: Nicotine Patch Removal NOTE FOLLOW UP SCH (21:00)
[2018-08-08 21:07] VITALS: BP 104/45
[2018-08-08] MEDS ORDERED: Azithromycin 500 mg/250 ml NS 500 MG/250 ML BAG IVPB SCH (21:30)
[2018-08-09] MEDS ORDERED: Vancomycin Trough Check NOTE FOLLOW UP ONE (11:30)
== END 2018-08-08 14:25 | disposition short-term general hospital (02) | DRG 720 ==
LOC: ED 19:43 → MEDTELE 08-08 01:29
PROVIDERS: ADMIT Internal Medicine; ATTEND Internal Medicine
PROC: 05H633Z Insertion of Infusion Device into Left Subclavian Vein, Percutaneous Approach (ICD-10-PCS; principal; 2018-08-08)
DX: A41.9 Sepsis, unspecified organism (principal); E87.1 Hypo-osmolality and hyponatremia; J81.1 Chronic pulmonary edema; F17.210 Nicotine dependence, cigarettes, uncomplicated; D64.9 Anemia, unspecified; J45.909 Unspecified asthma, uncomplicated; B18.2 Chronic viral hepatitis C; F41.9 Anxiety disorder, unspecified; D69.6 Thrombocytopenia, unspecified; R74.8 Abnormal levels of other serum enzymes; R09.02 Hypoxemia; I35.1 Nonrheumatic aortic (valve) insufficiency; Z88.0 Allergy status to penicillin; Z81.1 Family history of alcohol abuse and dependence; Z88.8 Allergy status to other drugs, medicaments and biological substances; Z82.49 Family history of ischemic heart disease and other diseases of the circulatory system; Z56.0 Unemployment, unspecified; R40.2363 Coma scale, best motor response, obeys commands, at hospital admission; R40.2143 Coma scale, eyes open, spontaneous, at hospital admission; R40.2253 Coma scale, best verbal response, oriented, at hospital admission; R68.0 Hypothermia, not associated with low environmental temperature
CPT/HCPCS: 36415; 71045; 71046; 71260; 80048; 80053; 82728; 83540; 83550; 83605; 83735; 84238; 84484; 85025; 85060; 85610; 85730; 86140; 86703; 87040; 87077; 87186; 87205; 87522; 93005; 93306; 99284; A9270-GY; J0456; J0696; J3370; Q9967